=== PATIENT | female | born 1945 | race Caucasian/White ===

== ENCOUNTER → 2016-08-29 | Outpatient (CLI) | payer MEDICARE, BC ==
[~2016-08-29] MED LIST: 3N1 COMMODE MC; ASPI-781 PO; CHOL2000 PO; CPM MC; DOCU-144 PO; LORA0.5T PO; METO100T13 PO; NA P133E3 PR; OXYC-481 PO; QUINIPRIL PO; TRAM50TA2 PO; TRHC5025 PO; UDMOM PO; WALK1EAC23 MC
--- NOTE | 2016-08-29 11:06 | RADRPT ---
PROCEDURE: XR right knee. CLINICAL INDICATION: Knee pain. TECHNIQUE: AP weightbearing, lateral weightbearing and sunrise views are available for review. COMPARISON: 03/21/2016 FINDINGS: There is a total knee replacement. There is no evidence of loosening of the prosthesis. The osseous structures are normal in mineralization, architecture and alignment No acute fracture or dislocation is seen.No osseous lesions are identified. The soft tissues are unremarkable . IMPRESSION: Unremarkable total knee replacement. RPTAT: HGDB .Bao Elizondo MD, MD Date Time Electronically viewed and signed by .Bao Elizondo MD, on 08/29/2016 11:06 .B/
== END | disposition home or self-care (01) ==
LOC: HKI 09:17
PROVIDERS: ATTEND Orthopaedic Surgery
DX: Z47.1 Aftercare following joint replacement surgery (principal); Z96.651 Presence of right artificial knee joint
CPT/HCPCS: 73562; G0463